=== PATIENT | female | born 1950 | race Hispanic/Latino ===

== ENCOUNTER 2018-05-29 12:06 | Outpatient (CLI) | payer OTHER | END 2018-05-29 12:07 | disposition home or self-care (01) | LOC: BICRAD 12:06 | PROVIDERS: ATTEND Family Medicine | DX: M79.641 Pain in right hand (principal); M19.031 Primary osteoarthritis, right wrist; M19.041 Primary osteoarthritis, right hand; M81.0 Age-related osteoporosis without current pathological fracture ==